=== PATIENT | male | born 1975 | race Two or more races ===

== ENCOUNTER 2020-08-04 22:29 | Emergency (ER) | payer SELFPAY ==
--- NOTE | 2020-08-05 01:15 | ED Physician Documentation ---
PD HPI UPPER EXT INJURY - Stated complaint Stated Complaint: LT HAND LAC - Chief complaint Chief Complaint: Laceration - History obtained from History obtained from: Patient - History of Present Illness Location: Left, Hand Type of injury: Laceration Where injury occurred: Home Timing - onset: Enter time (21:30) Timing - details: Abrupt onset Associated symptoms: No: Weakness, Numbness, Swelling Similar symptoms before: Has not had sx before Recently seen: Not recently seen - Additonal information Additional information: Patient is right hand dominant. He presents with two lacerations to his left hand, sustained at approximately 9:30 tonight when he was cutting a coconut and the knife slipped. Review of Systems Skin: reports: Laceration (s) Neurologic: denies: Focal weakness, Numbness PD PAST MEDICAL HISTORY - Past Medical History Past Medical History: No - Past Surgical History Past Surgical History: No - Present Medications Home Medications: Ambulatory Orders Medication Instructions Recorded Confirmed cephALEXin [Keflex] 500 mg PO Q6H #19 08/05/20 - Allergies Allergies/Adverse Reactions: Allergies Allergy/AdvReac Type Severity Reaction Status Date / Time No Known Drug Allergies Allergy Verified 08/04/20 22:58 - Social History Does the pt smoke?: No Smoking Status: Never smoker Does the pt drink ETOH?: No Does the pt have substance abuse?: No - Immunizations Immunizations are current?: Yes - POLST Patient has POLST: No PD ED PE NORMAL - Vitals Vital signs reviewed: Yes - General General: Alert and oriented X 3, No acute distress, Well developed/nourished - Neuro Neuro: No: No motor deficit (full strength left finger and thumb in flexion and extension, abduction of thumb), No sensory deficit PD ED PE EXPANDED - Extremities LJ UE/Hands Visual: 1 - laceration (2 cm length) 2 - laceration (3 cm length) Results - Vitals Vitals: Oxygen O2 Source Room air Procedures - Laceration (location) Hand left Length in cm: 5 (total length of both lacerations) Wound type: Into subcut fat, Clean Neurovascular status: Sensory intact, Motor intact, Vascular intact Tendon involvement: Tendon intact Anesthesia: Lidocaine 1%, With bicarb Wound preparation: Hibiclens, Irrigated copiously NS, Wound explored, To the base. No: FB identified Skin layer closure: Interrupted, Running, Size #-0 - enter number Other: Patient tolerated well, No complications, Neurovascular intact, Dressing applied PD MEDICAL DECISION MAKING - ED course Complexity details: considered differential, d/w patient Departure - Departure Disposition: 01 Home, Self Care Clinical Impression: Laceration Condition: Good Instructions: ED Laceration Hand, ED Laceration Ext Sutr Stap Tape Follow-Up: JUSTIN WARREN PA-C [Physician No Access] - (Follow up in 10 days for removal of the stitches) Prescriptions: cephALEXin [Keflex] 500 mg PO Q6H #19 Print Language: German Discharge Date/Time: 08/05/20 03:14
[2020-08-05] MEDS ORDERED: BUFFERED LIDOCAINE 10 ML SYRINGE SUBQ STA ×2 (01:21→02:41)
[2020-08-05] MEDS ORDERED: BACITRACIN ZINC OINT 1 PACKET TOP STA (02:55)
[2020-08-05] MEDS ORDERED: cephALEXin 250 MG CAPSULE PO STA (03:03)
[2020-08-05 03:14] VITALS: BP 133/93
== END 2020-08-05 03:14 | disposition home or self-care (01) ==
LOC: ED 22:29
DX: S61.412A Laceration without foreign body of left hand, initial encounter (principal); W26.0XXA Contact with knife, initial encounter; Y93.G1 Activity, food preparation and clean up; Y92.009 Unspecified place in unspecified non-institutional (private) residence as the place of occurrence of the external cause
CPT/HCPCS: 12002; 99282; 99283; A9270